=== PATIENT | male | born 1995 | race Caucasian/White ===

== ENCOUNTER 2018-03-01 12:52 | Emergency (ER) | payer OTHER ==
[2018-03-01] MEDS ORDERED: NS 1,000 ML IV ONE (13:09)
[2018-03-01] MEDS ORDERED: LORazepam 2 MG/ML INJ IVP ONE (13:09)
--- NOTE | 2018-03-01 13:09 | EDPHY ---
H & P Stated Complaint: L upper chest pain x 4 days, L arm feeling numb since ~last night Time Seen by Provider: 03/01/18 13:04 HPI/ROS: HPI: This is a 22-year-old male who presents with Chief Complaint: L upper chest pain x 4 days, L arm feeling numb since ~last night Location: Left upper chest/left arm Quality: Pain and numbness Duration: 4 days/last night Signs and Symptoms: no shortness of breath at rest, no shortness of breath on exertion, no cough, no palpitations, no lower extremity edema, no wheezing, no orthopnea, no paroxysmal nocturnal dyspnea, no fever, no injury/trauma, no hemoptysis, no carpal pedal spasms Timing: Acute, worsening Severity: Mild Context: Patient is currently a grad student at a [employer] and has been inside typing a taper for the last few days presents with ominous onset of left upper chest pain for the last 4 days that occurred while sitting down riding his paper. Patient reports that it comes and goes. That is nonradiating in nature. Last night his left arm down into all 5 fingers started to feel numb and tingly but denies decreased range of motion. Patient admits that he is under considerable stress and feels anxious. Denies any recent long distance travel, palpitations, lower extremity edema. Nonsmoker. Patient has had no upper respiratory or viral symptoms and denies fever. Nothing makes the pain better or worse. Leaning forward does not meet the pain better. Modifying Factors: None Comment: ROS: A comprehensive 10 system review of systems is otherwise negative aside from elements mentioned in the history of present illness. MEDICAL/SURGICAL/SOCIAL HISTORY: Medical history: Generally healthy. Does not take any regular medications. Surgical history: Denies Social history: Never smoked. CONSTITUTIONAL: Smoked anxious, young adult white male, awake and alert, no obvious distress HEENT: Atraumatic and normocephalic, PERRL, EOMI. Nares patent; no rhinorrhea; no nasal mucosal edema. Tympanic membranes clear. Oropharynx clear, no exudate and moist pink mucosa. Airway patent. No lymphadenopathy. No meningismus. Cardiovascular: Normal S1/S2, regular rate, regular rhythm, without murmur rub or gallop. PULMONARY/CHEST: Symmetrical and nontender. Clear to auscultation bilaterally. Good air movement. No accessory muscle usage. ABDOMEN: Soft, nondistended, nontender, no rebound, no guarding, no peritoneal signs, no masses or organomegaly. No CVAT. EXTREMITIES: 2/2 pulses, strength 5/5, no deformities, no clubbing, no cyanosis or edema. NEUROLOGICAL: no focal neuro deficits. GCS 15. SKIN: Warm and dry, no erythema. no rash. Good capillary refill. Source: Patient Exam Limitations: No limitations - Medical/Surgical History Hx Asthma: No Hx Chronic Respiratory Disease: No Hx Diabetes: No Hx Cardiac Disease: No Hx Renal Disease: No Hx Cirrhosis: No Hx Alcoholism: No Hx HIV/AIDS: No Hx Splenectomy or Spleen Trauma: No Other PMH: denies - Social History Smoking Status: Never smoked Constitutional: Initial Vital Signs Temperature (C) 36.5 C 03/01/18 12:55 Heart Rate 75 03/01/18 12:55 Respiratory Rate 18 03/01/18 12:55 Blood Pressure 125/70 H 03/01/18 12:55 O2 Sat (%) 100 03/01/18 12:55 O2 Delivery Mode Room Air Allergies/Adverse Reactions: No Known Allergies Allergy (Unverified 03/01/18 12:53) Home Medications: Medication Instructions Recorded NK [No Known Home Meds] 03/01/18 Medical Decision Making ED Course/Re-evaluation: Vital signs reviewed and stable upon arrival. Placed on telemetry monitor. EKG my read shows normal sinus rhythm with early repolarization. I doubt pericarditis at this point is no recent viral infection, no pericardial friction rub, and pain not relieved with leaning forward. IV access and laboratory studies ordered Given 1 L normal saline and IV Ativan I suspect this is anxiety/stress related. HEART score= low risk I reviewed the share decision making instrument with the patient, including risk of MACE, and the patient (and family) that are in agreement with the chosen disposition. 1320: Notified by tech that troponin 0.00 Labs reviewed. No signs of leukocytosis/anemia/platelet dysfunction/NIA/ electrolyte imbalance/VTE. 1359: Reassessed patient who reports decreased and chest discomfort and numbness status post Ativan. Given a school note for Saturday. This patient was seen under the supervision of my secondary supervising physician. I evaluated care for this patient independently. Discussed this patient with Dr. Castro who did not see the patient. Differential Diagnosis: Chest pain including but not limited to myocardial ischemia, pulmonary embolus, chest wall pain, pleural inflammation and pulmonary infectious causes. - Data Points Laboratory Results: Laboratory Results 03/01/18 13:13 03/01/18 03/01/18 03/01/18 13:17 13:13 13:13 WBC 6.21 10^3/uL 10^3/uL (3.80-9.50) RBC 5.05 10^6/uL 10^6/uL (4.40-6.38) Hgb 15.1 g/dL g/dL (13.7-17.5) Hct 44.8 % % (40.0-51.0) MCV 88.7 fL fL (81.5-99.8) MCH 29.9 pg pg (27.9-34.1) MCHC 33.7 g/dL g/dL (32.4-36.7) RDW 12.5 % % (11.5-15.2) Plt Count 253 10^3/uL 10^3/uL (150-400) MPV 10.7 fL fL (8.7-11.7) Neut % (Auto) 66.4 % % (39.3-74.2) Lymph % (Auto) 21.4 % % (15.0-45.0) [place] % (Auto) 10.8 % % (4.5-13.0) Eos % (Auto) 0.6 % % (0.6-7.6) Baso % (Auto) 0.6 % % (0.3-1.7) Nucleat RBC Rel Count 0.0 % % (0.0-0.2) Absolute Neuts (auto) 4.12 10^3/uL 10^3/uL (1.70-6.50) Absolute Lymphs (auto) 1.33 10^3/uL 10^3/uL (1.00-3.00) Absolute Monos (auto) 0.67 10^3/uL 10^3/uL (0.30-0.80) Absolute Eos (auto) 0.04 10^3/uL 10^3/uL (0.03-0.40) Absolute Basos (auto) 0.04 10^3/uL 10^3/uL (0.02-0.10) Absolute Nucleated RBC 0.00 10^3/uL 10^3/uL (0-0.01) Immature Gran % 0.2 % % (0.0-1.1) Immature Gran # 0.01 10^3/uL 10^3/uL (0.00-0.10) D-Dimer < 0.27 ug/mLFEU ug/mLFEU (0.00-0.50) POC Troponin I 0.00 ng/mL ng/mL (0.00-0.08) Medications Given: Discontinued Medications Sodium Chloride (Ns) 1,000 mls @ 0 mls/hr IV EDNOW ONE; Wide Open PRN Reason: Protocol Stop: 03/01/18 13:10 Last Admin: 03/01/18 13:15 Dose: 1,000 mls Lorazepam (Ativan Injection) 1 mg IVP EDNOW ONE Stop: 03/01/18 13:10 Last Admin: 03/01/18 13:16 Dose: 1 mg Point of Care Test Results: Chemistry 03/01/18 13:17 POC Troponin I 0.00 ng/mL ng/mL (0.00-0.08) Departure - Departure Disposition: Home, Routine, Self-Care Clinical Impression: Atypical chest pain Condition: Good Instructions: Noncardiac Chest Pain (ED) Additional Instructions: Rest as much as possible until you are feeling better. Consume a minimum of 8-10 glasses of water or electrolyte fluid replacement drinks that include Gatorade, Powerade, Pedialyte. Take Tylenol 650 mg every 4 hours and/or Ibuprofen 600 mg every 8 hours with food as needed for pain. Follow up with student [facility] in 3-4 days if symptoms persist at which time they will evaluate and recommend with you if conservative management versus further management is indicated. Referrals: [facility] ,. [Clinic] - 3-4 days, if not improved
[2018-03-01] MEDS ORDERED: LORazepam 2 MG/ML INJ ONE (13:16)
[2018-03-01 13:26] LABS: PLATELET COUNT 253 10^3/uL (150-400)
[2018-03-01 14:17] VITALS: BP 126/82
--- NOTE | 2018-03-10 17:03 | CPEKG ---
Test Reason : OPEN Blood Pressure : / mmHG Vent. Rate : 063 BPM Atrial Rate : 064 BPM P-R Int : 148 ms QRS Dur : 101 ms QT Int : 391 ms P-R-T Axes : 051 088 074 degrees QTc Int : 401 ms Sinus rhythm Probable left atrial enlargement Nonspecific T abnrm, anterolateral leads ST elev, probable normal early repol pattern Confirmed by Johnny Castro ([id number]) on 03/10/2018 5:02:56 PM Referred By: Confirmed By:Johnny Castro
== END 2018-03-01 14:17 | disposition home or self-care (01) ==
DX: R07.89 Other chest pain (principal); E86.9 Volume depletion, unspecified
CPT/HCPCS: 84484-ER; 96374; J2060